=== PATIENT | female | born 1990 | race Caucasian/White ===

== ENCOUNTER 2021-08-21 22:47 | Inpatient (IN) | payer OTHER ==
[2021-08-22] MEDS ORDERED: morphine SULFATE 4 MG/ML VIAL IVPUSH ONE (01:43)
[2021-08-22] MEDS ORDERED: ONDANSETRON 4 MG/2 ML VIAL IVPUSH ONE (01:43)
[2021-08-22] MEDS ORDERED: LACTATED RINGERS SOLUTION 1000 ML INFUS.BAG IV ONE (01:43)
[2021-08-22] MEDS ORDERED: morphine CARPU-JECT 4 MG/1 ML DISP.SYRIN IVPUSH ONE (01:43)
[2021-08-22] MEDS ORDERED: FAMOTIDINE 20 MG/50 ML IVPB 50 ML IVPB ONE (01:43)
[2021-08-22] MEDS ORDERED: FAMOTIDINE/PF 20 MG/2 ML VIAL IVPB ONE (01:43)
[2021-08-22] MEDS ORDERED: morphine SULFATE 4 MG/ML VIAL ONE ×3 (01:44→04:50)
[2021-08-22] MEDS ORDERED: FAMOTIDINE/PF 20 MG/2 ML VIAL ONE (01:45)
[2021-08-22 02:38] LABS: BASO % 0.5 % (0-2.0); EOS % 2.3 % (0-4.5); HEMATOCRIT 40.5 % (32.4-45.2); HEMOGLOBIN 14.2 GM/dL (10.7-15.3); LYMPH % 9.3 % (8-40); MCH 35.2 pg (25.7-33.7); MCHC 35.1 g/dl (32.0-36.0); MEAN CELL VOLUME 100.1 fl (80-96); MEAN PLT VOLUME 8.8 fl (7.5-11.1); MONO % 11.8 % (3.8-10.2); NEUT % 76.1 % (42.8-82.8); PLATELET COUNT 339 10^3/uL (134-434); RBC 4.04 M/mm3 (3.60-5.2); RDW 12.6 % (11.6-15.6); WHITE BLOOD COUNT 16.6 K/mm3 (4.0-10.0)
[2021-08-22 02:45] LABS: INR 1.15 (0.83-1.09); PROTHROMBIN TIME (PATIENT) 13.5 SEC (9.7-13.0)
[2021-08-22 02:55] LABS: CALCIUM 9.2 mg/dL (8.5-10.1)
[2021-08-22 02:56] LABS: ALBUMIN 4.2 g/dl (3.4-5.0)
[2021-08-22 02:59] LABS: CREATININE 0.7 mg/dL (0.55-1.3)
[2021-08-22 03:01] LABS: BILIRUBIN,TOTAL 0.9 mg/dL (0.2-1)
[2021-08-22] MEDS ORDERED: CLINDAMYCIN 600MG PREMIX IVPB 600 MG/50 ML BAG IVPB ONE ×2 (04:03→04:11)
[2021-08-22] MEDS ORDERED: morphine CARPU-JECT 2 MG/1 ML DISP.SYRIN IVPUSH ONE (04:48)
[2021-08-22] MEDS ORDERED: oxyCODONE HCL 5 MG TABLET PO PRN (05:37)
[2021-08-22] MEDS ORDERED: ONDANSETRON 4 MG/2 ML VIAL IVPUSH PRN ×2 (05:37→12:54)
[2021-08-22] MEDS ORDERED: ACETAMINOPHEN 325 MG TABLET (FP) PO PRN (05:37)
[2021-08-22] MEDS ORDERED: MELATONIN 5 MG TABLETS PO PRN ×2 (05:38→12:54)
[2021-08-22] MEDS ORDERED: VANCOMYCIN 1 GM in D5W (PRE-DOCKED) 1,000 MG/250 ML IVPB SCH (06:00)
[2021-08-22] MEDS ORDERED: VANCOMYCIN 1 GRAM (PRE-DOCKED) 1,000 MG/250 ML BAG IVPB ONE (06:05)
[2021-08-22] MEDS ORDERED: ceFAZolin SODIUM 1 GM VIAL ONE ×2 (06:05→17:47)
[2021-08-22] MEDS: CEFAZOLIN 2 GM in DEXTROSE 5%-WATER - 100 ML IVPB SCH ×2 (06:14→09:24)
[2021-08-22] MEDS ORDERED: ONDANSETRON 4 MG/2 ML VIAL ONE (06:27)
[2021-08-22] MEDS ORDERED: ENOXAPARIN NA (PORCINE) 40 MG/0.4 ML DISP.SYRIN SQ ONE (08:21)
[2021-08-22] MEDS ORDERED: DOCUSATE SODIUM 100 MG CAPSULE (FP) PO ONE (08:21)
[2021-08-22] MEDS ORDERED: diphenhydrAMINE HCL 25 MG CAPSULE (FP) PO ONE ×2 (08:29→08:33)
[2021-08-22] MEDS ORDERED: DOCUSATE SODIUM 100 MG CAPSULE (FP) PO SCH (10:00)
[2021-08-22] MEDS ORDERED: ENOXAPARIN NA (PORCINE) 40 MG/0.4 ML DISP.SYRIN SQ SCH (10:00)
[2021-08-22] MEDS ORDERED: CLINDAMYCIN 300 MG PREMIX IVPB 300 MG/50 ML BAG IVPB SCH ×2 (10:45→18:00)
[2021-08-22] MEDS ORDERED: morphine SULFATE 4 MG/ML VIAL IVPUSH PRN (10:46)
[2021-08-22] MEDS ORDERED: SUCCINYLCHOLINE CHLORIDE 200 MG/10 ML SYRINGE ONE (10:57)
[2021-08-22] MEDS ORDERED: PROPOFOL 20 ML ONE ×2 (10:57)
[2021-08-22] MEDS ORDERED: MIDAZOLAM HCL 2 MG/2 ML SINGLE DOSE VIAL ONE (10:57)
[2021-08-22] MEDS ORDERED: DEXAMETHASONE SOD PHOSPHATE 4 MG/1 ML VIAL ONE (11:38)
[2021-08-22] MEDS ORDERED: LACTATED RINGERS SOLUTION 1,000 ML IV SCH (12:15)
[2021-08-22] MEDS: oxyCODONE HCL 5 MG TABLET PO PRN ×2 (13:31→20:02)
[2021-08-22] MEDS: ACETAMINOPHEN 325 MG TABLET (FP) PO PRN ×2 (15:08→20:48)
[2021-08-22] MEDS: LACTATED RINGERS SOLUTION 1,000 ML IV SCH (15:08)
[2021-08-22] MEDS ORDERED: SODIUM CHLORIDE 100 ML IVPB ONE (17:47)
[2021-08-22] MEDS ORDERED: MECLIZINE HCL 25 MG TABLET (FP) PO ONE (17:55)
[2021-08-22] MEDS: CEFAZOLIN 2 GM in SODIUM CHLORIDE 100 ML IVPB SCH (18:15)
[2021-08-23] MEDS ORDERED: IBUPROFEN 800 MG/8 ML IJ IVPB ONE (00:03)
[2021-08-23] MEDS: CEFAZOLIN 2 GM in SODIUM CHLORIDE 100 ML IVPB SCH ×2 (03:00→09:06)
[2021-08-23] MEDS ORDERED: VANCOMYCIN 1 GM in D5W (PRE-DOCKED) 1,000 MG/250 ML IVPB SCH (06:00)
[2021-08-23] MEDS: LACTATED RINGERS SOLUTION 1,000 ML IV SCH ×2 (06:16→13:27)
[2021-08-23 06:44] LABS: BASO % 0.3 % (0-2.0); EOS % 0.8 % (0-4.5); HEMATOCRIT 27.1 % (32.4-45.2); HEMOGLOBIN 9.6 GM/dL (10.7-15.3); LYMPH % 17.4 % (8-40); MCH 35.9 pg (25.7-33.7); MCHC 35.3 g/dl (32.0-36.0); MEAN CELL VOLUME 101.6 fl (80-96); MEAN PLT VOLUME 8.8 fl (7.5-11.1); MONO % 13.4 % (3.8-10.2); NEUT % 68.1 % (42.8-82.8); PLATELET COUNT 224 10^3/uL (134-434); RBC 2.67 M/mm3 (3.60-5.2); RDW 12.3 % (11.6-15.6); WHITE BLOOD COUNT 7.9 K/mm3 (4.0-10.0)
[2021-08-23 06:56] LABS: CALCIUM 7.9 mg/dL (8.5-10.1)
[2021-08-23 06:57] LABS: BLOOD UREA NITROGEN 4.1 mg/dL (7-18)
[2021-08-23 06:59] LABS: CREATININE 0.3 mg/dL (0.55-1.3)
[2021-08-23 07:01] LABS: BILIRUBIN,TOTAL 0.4 mg/dL (0.2-1)
[2021-08-23 07:39] LABS: ALBUMIN 2.4 g/dl (3.4-5.0); TOT PROT 5.3 g/dl (6.4-8.2)
[2021-08-23] MEDS ORDERED: COLLAGENASE CLOSTRIDIUM HIST. 30 GRAMS TUBE TP SCH (10:00)
[2021-08-23] MEDS ORDERED: DOCUSATE SODIUM 100 MG CAPSULE (FP) PO SCH (10:00)
[2021-08-23] MEDS: oxyCODONE HCL 5 MG TABLET PO PRN ×2 (10:22→16:35)
[2021-08-23] MEDS: ACETAMINOPHEN 325 MG TABLET (FP) PO PRN (13:30)
[2021-08-23 14:32] VITALS: BP 104/67; PULSE 88
[2021-08-23 14:50] VITALS: BMI 17.6
[2021-08-23 16:29] VITALS: TEMP 98.8
[2021-08-24] MEDS ORDERED: MULTIVITAMINS THER W-MINERALS COMBO TABLET (FP) PO SCH (10:00)
== END 2021-08-23 19:23 | disposition home health service (06) | DRG 364 ==
LOC: JER 22:47 → JERBED 08-22 04:03 → J7W 08-22 10:00 → UNDODISIN 08-23 16:00
PROVIDERS: ADMIT Internal Medicine
PROC: 0J940ZZ Drainage of Right Neck Subcutaneous Tissue and Fascia, Open Approach (ICD-10-PCS; principal; 2021-08-22 11:00)
DX: L03.221 Cellulitis of neck (principal); A49.01 Methicillin susceptible Staphylococcus aureus infection, unspecified site; L02.11 Cutaneous abscess of neck; F41.9 Anxiety disorder, unspecified; D72.829 Elevated white blood cell count, unspecified; F12.90 Cannabis use, unspecified, uncomplicated; F17.210 Nicotine dependence, cigarettes, uncomplicated
CPT/HCPCS: 36415; 72125-TC; 80053; 83036; 83605; 84703; 85025; 85610; 85730; 86850; 86900; 86901; 87040; 87070; 87186; 87205; 88304-TC; 93005; 93010; 94760; 97116-GP; 97161-GP; 99285-25; C9803; U0003; U0005

== ENCOUNTER 2023-10-21 14:55 | Inpatient (IN) | payer OTHER ==
[2023-10-21] MEDS: ELECTROLYTE-148 SOLN 500 ML IV ONE (15:45)
[2023-10-21 16:01] LABS: BASO % 0.4 % (0-2.0); HEMATOCRIT 39.5 % (32.4-45.2); LYMPH % 10.7 % (8-40); MCH 37.3 pg (25.7-33.7); MCHC 35.4 g/dl (32.0-36.0); MEAN CELL VOLUME 105.2 fl (80-96); MEAN PLT VOLUME 9.5 fl (7.5-11.1); MONO % 8.3 % (3.8-10.2); NEUT % 75.6 % (42.8-82.8); PLATELET COUNT 257 10^3/uL (134-434); RBC 3.76 M/mm3 (3.60-5.2); RDW 13.2 % (11.6-15.6); WHITE BLOOD COUNT 12.8 K/mm3 (4.0-10.0)
[2023-10-21 16:14] LABS: PROTHROMBIN TIME (PATIENT) 11.6 SEC (9.7-13.0)
[2023-10-21 16:17] LABS: ACTIVATED PTT 27.2 SECONDS (25.2-36.5)
[2023-10-21 16:28] LABS: POTASSIUM 3.8 mmol/L (3.5-5.1)
[2023-10-21 16:30] LABS: BLOOD UREA NITROGEN 6.1 mg/dL (7-18)
[2023-10-21 16:33] LABS: CREATININE 0.5 mg/dL (0.55-1.3)
[2023-10-21 16:35] VITALS: BMI 28.4
[2023-10-21 16:40] LABS: ANISOCYTOSIS 2+; MACROCYTOSIS 2+
[2023-10-21] MEDS: ELECTROLYTE-148 SOLN 1,000 ML IV SCH (16:45)
[2023-10-21 17:24] LABS: HIV INTERPRETATION NEGATIVE (NEGATIVE)
[2023-10-21] MEDS: CITRIC ACID/SODIUM CITRATE 30 ML UNIT-DOSE CUP PO ONE (17:30)
[2023-10-21] MEDS ORDERED: IBUPROFEN 600 MG TABLET (FP) PO PRN (17:48)
[2023-10-21] MEDS ORDERED: ONDANSETRON 4 MG/2 ML VIAL IVPUSH PRN (17:48)
[2023-10-21] MEDS ORDERED: ceFAZolin SODIUM 1 GM VIAL ONE (17:54)
[2023-10-21] MEDS ORDERED: morphine SULFATE/PF 1 MG/2 ML (2cc Syringe - QUVA) ONE (17:54)
[2023-10-21] MEDS ORDERED: SODIUM CHLORIDE 0.9% P/F 10 ML VIAL IJ ONE ×2 (17:54→18:10)
[2023-10-21] MEDS ORDERED: PHENYLEPHRINE HCL 10 MG/1 ML SINGLE DOSE VIAL ONE (18:10)
[2023-10-21] MEDS ORDERED: ONDANSETRON 4 MG/2 ML VIAL ONE (18:20)
[2023-10-21] MEDS ORDERED: OXYTOCIN 10 UNITS/ML VIAL ONE ×2 (18:20→18:49)
[2023-10-21] MEDS ORDERED: MIDAZOLAM HCL 2 MG/2 ML SINGLE DOSE VIAL ONE (18:33)
[2023-10-21] MEDS: morphine SULFATE/PF 1 MG/2 ML (2cc Syringe - QUVA) EP ONE (19:00)
[2023-10-21] MEDS ORDERED: OXYTOCIN 20 UNITS in 0.9% NS 20 UNIT/1,000 ML INFUS.BAG IV ONE (19:59)
[2023-10-21] MEDS: OXYTOCIN 20 UNITS in 0.9% NS 20 UNIT/1,000 ML INFUS.BAG IV SCH (20:00)
[2023-10-21] MEDS ORDERED: ACETAMINOPHEN 325 MG TABLET (FP) PO PRN (20:47)
[2023-10-21] MEDS ORDERED: METHYLERGONOVINE MALEATE 0.2 MG/1 ML AMP IM PRN (20:47)
[2023-10-21] MEDS ORDERED: ACETAMINOPHEN 1000 MG/100 ML BAG IVPB PRN (20:50)
[2023-10-21] MEDS ORDERED: IBUPROFEN 800 MG/8 ML IJ IVPB ONE (21:15)
[2023-10-21] MEDS: IBUPROFEN 800 MG/8 ML IJ IVPB PRN (21:20)
[2023-10-22 08:11] LABS: BASO % 0.3 % (0-2.0); EOS % 3.3 % (0-4.5); HEMATOCRIT 34.9 % (32.4-45.2); HEMOGLOBIN 12.5 GM/dL (10.7-15.3); LYMPH % 6.7 % (8-40); MCH 37.7 pg (25.7-33.7); MCHC 35.7 g/dl (32.0-36.0); MEAN CELL VOLUME 105.5 fl (80-96); MEAN PLT VOLUME 9.3 fl (7.5-11.1); MONO % 9.2 % (3.8-10.2); NEUT % 80.5 % (42.8-82.8); PLATELET COUNT 176 10^3/uL (134-434); RBC 3.31 M/mm3 (3.60-5.2); RDW 13.2 % (11.6-15.6); WHITE BLOOD COUNT 17.4 K/mm3 (4.0-10.0)
[2023-10-22] MEDS ORDERED: oxyCODONE HCL 5 MG TABLET PO PRN (08:47)
[2023-10-22] MEDS: FERROUS SO4 325 MG TABLET (FP) PO SCH (08:53)
[2023-10-22] MEDS: PRENATAL VITAMINS W/ FOLIC ACID TABLET (FP) PO SCH (11:30)
[2023-10-22] MEDS: ACETAMINOPHEN 325 MG TABLET (FP) PO PRN (14:05)
[2023-10-22] MEDS: SIMETHICONE 80 MG TAB.CHEW (FP) PO PRN (19:14)
[2023-10-22] MEDS: IBUPROFEN 600 MG TABLET (FP) PO PRN (19:14)
[2023-10-22] MEDS: SENNOSIDES/DOCUSATE COMBO (SENNA PLUS) TABLET (UD) PO PRN (20:46)
[2023-10-22] MEDS: oxyCODONE HCL 5 MG TABLET PO PRN (20:46)
[2023-10-22] MEDS ORDERED: BISACODYL 10 MG SUPP.RECT RC PRN (20:47)
[2023-10-24 06:12] VITALS: TEMP 98.2
[2023-10-24 09:12] VITALS: BP 112/72; PULSE 71; RESP 20
== END 2023-10-24 15:25 | disposition home or self-care (01) | DRG 540 ==
LOC: JLDR 14:55 → J3W 21:27
PROVIDERS: ADMIT Obstetrics & Gynecology; ATTEND Obstetrics & Gynecology
PROC: 10D00Z1 Extraction of Products of Conception, Low, Open Approach (ICD-10-PCS; principal; 2023-10-21)
DX: O48.0 Post-term pregnancy (principal); O42.02 Full-term premature rupture of membranes, onset of labor within 24 hours of rupture; O69.81X0 Labor and delivery complicated by cord around neck, without compression, not applicable or unspecified; Z3A.40 40 weeks gestation of pregnancy; Z37.0 Single live birth
CPT/HCPCS: 36415; 80048; 85025; 85610; 85730; 86780; 86850; 86900; 86901; 87389; 88307-TC